=== PATIENT | female | born 1975 | race Caucasian/White ===

== ENCOUNTER 2017-08-05 12:33 | Observation (INO) | payer BC ==
[~2017-08-05] VITALS: Ht 165.1 cm; Wt 112.8 kg
[~2017-08-05 12:33] MED LIST: ALBU1AER9 INH; ASPI81TA28 PO; EXEN1INJ4 SQ; FLUO40CA8 PO; FRRS300 PO; GLC500 PO; GLIP-199 PO; IBUP-1050 PO; LISI-725 PO; ONDA4TAB65 PO; PANT1TAB48 PO; VALA500T39 PO
[2017-08-05] MEDS ORDERED: MoRPHine SULFATE 4 MG/ML 1 ML CARP\\VIAL IV STA (13:06)
[2017-08-05] MEDS ORDERED: ONDANSETRON INJ 2 MG/ML 2 ML VIAL IV STA (13:06)
[2017-08-05] MEDS ORDERED: SODIUM CHLORIDE 0.9% 1000ML 1,000 ML IV STA (13:06)
[2017-08-05] MEDS ORDERED: LIRA18IN SC (13:09)
--- NOTE | 2017-08-05 13:10 | EMERGENCY ROOM VISIT NOTE ---
History First contact with patient: 12:58 Chief Complaint: FLANK PAIN Stated Complaint: LOWER R BELLY PAIN, VOMITING, CHILLS, DIZZY History of Present Illness The patient is a 41 year old female who presents to the Emergency Room with complaints of right flank and abdominal pain. The patient states the pain started suddenly about 2 hours ago. The pain is in the right flank and radiates into the right lower abdomen. She reports associated nausea and vomiting. She denies any fevers. She rates her discomfort a 7/10. She denies any pain in her chest or trouble breathing. She denies any diarrhea. She denies any urinary symptoms. The patient has a history of hernia repair, cholecystectomy and . The patient has also had kidney stones in the past but she states this feels slightly different. Review of Systems A 10 system review of systems was completed with positives and pertinent negatives listed in the HPI. Past Medical/Surgical History Medical Problems: (1) Alcohol abuse, in remission (2) Benign hypertension (3) Brain mass (4) Depression (5) Diabetes mellitus, type II (6) GERD (gastroesophageal reflux disease) (7) Hirsutism (8) History of renal calculi (9) PCOS (polycystic ovarian syndrome) (10) Posttraumatic stress disorder (11) Retinal artery occlusion (12) Sleep apnea (13) Strep pharyngitis (14) Strep tonsillitis Surgical Problems: (1) H/O section (2) H/O tubal ligation (3) History of carpal tunnel surgery of left wrist (4) History of dental surgery (5) S/p EGD with EUS (6) S/P laparoscopy (7) Status post cholecystectomy (8) Status post hernia repair (9) Status post tonsillectomy Family History Hypertension Social History Smoking Status: Never Smoker Alcohol Use: occasionally Drug Use: none Marital Status: Housing Status: lives with significant other Occupation Status: employed Current/Historical Medications Scheduled Aspirin (Aspirin Ec), 81 MG PO QAM Cetirizine (Zyrtec), 10 MG PO HS Ferrous Sulfate (Ferrous Sulfate), 325 MG PO BID Glipizide (Glipizide Er), 10 MG PO BIDM Liraglutide (Victoza), 1.2 MG SC DAILY Lisinopril (Lisinopril), 5 MG PO DAILY Metformin Hcl (Glucophage), 1,000 MG PO BID Montelukast Sodium (Singulair), 10 MG PO HS Pantoprazole (Protonix), 40 MG PO QAM Scheduled PRN Albuterol Sulfate (Proair Respiclick), 2 PUFFS INH Q4H PRN for Wheezing Ibuprofen (Advil), 600 MG PO UD PRN for Pain or Fever Ondansetron Hcl (Zofran), 4 MG PO Q6H PRN for Nausea Valacyclovir Hcl (Valtrex), 500 MG PO TID PRN Physical Exam Vital Signs Date Time Temp Pulse Resp B/P (MAP) Pulse Ox O2 Delivery O2 Flow Rate FiO2 08/05/17 15:33 80 18 116/79 97 08/05/17 12:54 36.6 82 16 112/68 100 Room Air Physical Exam VITALS: Vitals are noted on the nurse's note and reviewed by myself. Vital signs stable. The patient is afebrile. GENERAL: This is a 41-year-old female who appears to be uncomfortable, in no acute distress, nondiaphoretic, well-developed well-nourished. SKIN: The skin was without rashes, erythema, edema, or bruising. There is no tenting of the skin. Capillary reflex less than 2 seconds. HEAD: Normocephalic atraumatic. EARS: The external ears are normal in appearance. EYES: Pupils equal round and reactive to light and accommodation. Conjunctivae without injection, sclerae without icterus. Extraocular movements intact. NOSE: Patent, turbinates without inflammation or discharge. MOUTH: Mucous membranes moist. Tonsils are not enlarged. Pharynx without erythema or exudate. Uvula midline. Airway patent. Tongue does not deviate. NECK: Supple without nuchal rigidity. No lymphadenopathy. No thyromegaly. Cervical spine is nontender. No JVD. HEART: Regular rate and rhythm without murmurs gallops or rubs. LUNGS: Clear to auscultation bilaterally without wheezes, rales or rhonchi. No retractions or accessory muscle use. ABDOMEN: Positive bowel sounds x 4. Moderate right lower quadrant tenderness. Soft, nontender, without masses or organomegaly. Hartman sign negative. Negative rebound. Negative Rosvings. MUSCULOSKELETAL: No muscle atrophy, erythema, or edema noted. Full range of motion without joint tenderness in all extremities. Strength 5/5 throughout. NEURO: Patient was alert and oriented to person place and time. No focal neurological deficits. Medical Decision & Procedures ER Provider Diagnostic Interpretation: ABD/PELVIS WITHOUT FOR STONE HISTORY: 41 years-old Female right flank pain, h/o kidney stone acute right-sided flank pain with vomiting. Initial exam COMPARISON: CT abdomen and pelvis 09/13/2015 TECHNIQUE: Multiple axial CT images of the abdomen and pelvis were obtained without contrast utilizing kidney stone protocol. A dose lowering technique was used consistent with the principals of MALIKA. FINDINGS: Lung bases are generally clear with subsegmental linear pleural-based opacity of the right middle lobe suggesting scarring/atelectasis. No pneumoperitoneum. Imaged inferior cardiac chambers are unremarkable. There is decreased attenuation of the cardiac blood pool suggesting anemia. Hepatomegaly with hepatosteatosis is noted. Prior cholecystectomy. Spleen, pancreas and adrenal glands are within normal limits. 2 mm nonobstructing calculus of the superior pole left kidney is noted. Additionally, there is a 2 mm nonobstructing calculus of the inferior pole right kidney. There is mild right sided obstructive uropathy secondary to a 4 x 3 x 4 mm calculus of the right ureteropelvic junction. Mild associated surrounding inflammatory stranding. Ureters are otherwise unremarkable. Urinary bladder is collapsed. There is asymmetric prominence of the right uterine body, 3.1 x 2.4 cm which is suspicious for underlying uterine fibroid. There is a tubular fluid-filled structure in the region of the left adnexum measuring up to 9 mm transversely on image 390 of series 3 suggesting hydrosalpinx. The abdominal aorta is normal in course and caliber. No bulky retroperitoneal adenopathy. There is no bowel obstruction or focal bowel wall thickening. The appendix is air-filled, noninflamed and nondilated. Postsurgical changes are seen within the right lower quadrant of the abdomen. Previously noted chronic loculated fluid within the right lower quadrant have resolved. Soft tissues are unremarkable. Bones are intact. There is mild convex left curvature of the lumbar spine. Mild endplate changes of the lower thoracic spine. IMPRESSION: 1. Mild right-sided hydroureteronephrosis secondary to a 4 x 3 x 4 mm calculus of the right ureteropelvic junction. Additional nonobstructing renal calculi are present as above. 2. Normal appendix. 3. Postsurgical changes of the right lower quadrant with resolution of the previously described small loculated fluid collection. 4. Suspected mild left hydrosalpinx. Asymmetry of the right uterine body as above suggests uterine fibroid. This could be correlated with pelvic ultrasound if clinically indicated. 5. Hepatomegaly with hepatosteatosis. Prior cholecystectomy. The above report was generated using voice recognition software. It may contain grammatical, syntax or spelling errors. Laboratory Results 08/05/17 13:12 Red Blood Count 4.58, Mean Corpuscular Volume 68.1, Mean Corpuscular Hemoglobin 21.2, Mean Corpuscular Hemoglobin Concent 31.1, Mean Platelet Volume 9.6, Neutrophils (%) (Auto) 64.4, Lymphocytes (%) (Auto) 26.8, Monocytes (%) (Auto) 5.8, Eosinophils (%) (Auto) 2.3, Basophils (%) (Auto) 0.3, Neutrophils # (Auto) 8.85, Lymphocytes # (Auto) 3.68, Monocytes # (Auto) 0.80, Eosinophils # (Auto) 0.32, Basophils # (Auto) 0.04 08/05/17 13:12 Test 08/05/17 13:12 White Blood Count 13.74 K/uL (4.8-10.8) Red Blood Count 4.58 M/uL (4.2-5.4) Hemoglobin 9.7 g/dL (12.0-16.0) Hematocrit 31.2 % (37-47) Mean Corpuscular Volume 68.1 fL (80-100) Mean Corpuscular Hemoglobin 21.2 pg (25-34) Mean Corpuscular Hemoglobin Concent 31.1 g/dl (32-36) Platelet Count 403 K/uL (130-400) Mean Platelet Volume 9.6 fL (7.4-10.4) Neutrophils (%) (Auto) 64.4 % Lymphocytes (%) (Auto) 26.8 % Monocytes (%) (Auto) 5.8 % Eosinophils (%) (Auto) 2.3 % Basophils (%) (Auto) 0.3 % Neutrophils # (Auto) 8.85 K/uL (1.4-6.5) Lymphocytes # (Auto) 3.68 K/uL (1.2-3.4) Monocytes # (Auto) 0.80 K/uL (0.11-0.59) Eosinophils # (Auto) 0.32 K/uL (0-0.5) Basophils # (Auto) 0.04 K/uL (0-0.2) RDW Standard Deviation 42.1 fL (36.4-46.3) RDW Coefficient of Variation 16.9 % (11.5-14.5) Immature Granulocyte % (Auto) 0.4 % Immature Granulocyte # (Auto) 0.05 K/uL (0.00-0.02) Microcytosis PRESENT Tear Drop Cells 1+ Ovalocytes 1+ Urine Color DK YELLOW Urine Appearance CLOUDY (CLEAR) Urine pH 5.0 (4.5-7.5) Urine Specific [place] 1.022 (1.000-1.030) Urine Protein TRACE (NEG) Urine Glucose (UA) NEG (NEG) Urine Ketones TRACE (NEG) Urine Occult Blood 3+ (NEG) Urine Nitrite NEG (NEG) Urine Bilirubin NEG (NEG) Urine Urobilinogen NEG (NEG) Urine Leukocyte Esterase TRACE (NEG) Urine WBC (Auto) 1-5 /hpf (0-5) Urine RBC (Auto) >30 /hpf (0-4) Urine Hyaline Casts (Auto) 1-5 /lpf (0-5) Urine Epithelial Cells (Auto) >30 /lpf (0-5) Urine Bacteria (Auto) NEG (NEG) Urine Test NEG (NEG) Anion Gap 13.0 mmol/L (3-11) Est Creatinine Clear Calc Drug Dose 147.8 ml/min Estimated GFR () 130.3 Estimated GFR (Non- 112.4 BUN/Creatinine Ratio 9.2 (10-20) Calcium Level 9.5 mg/dl (8.5-10.1) Total Bilirubin 0.4 mg/dl (0.2-1) Aspartate Amino Transf (AST/SGOT) 29 U/L (15-37) Alanine Aminotransferase (ALT/SGPT) 27 U/L (12-78) Alkaline Phosphatase 52 U/L (45-117) Total Protein 7.7 gm/dl (6.4-8.2) Albumin 3.9 gm/dl (3.4-5.0) Globulin 3.8 gm/dl (2.5-4.0) Albumin/Globulin Ratio 1.0 (0.9-2) Lipase 138 U/L (73-393) Medications Administered Medications (Trade) Dose Ordered Sig/Kim Route Start Time Stop Time Status Last Admin Dose Admin Sodium Chloride 1,000 ml @ 999 mls/hr Q1H1M STAT IV 08/05/17 13:06 08/05/17 14:06 DC 08/05/17 13:17 999 MLS/HR Ondansetron HCl (Zofran Inj) 4 mg NOW STAT IV 08/05/17 13:06 08/05/17 13:08 DC 08/05/17 13:17 4 MG Morphine Sulfate (MoRPHine SULFATE INJ) 4 mg NOW STAT IV 08/05/17 13:06 08/05/17 13:08 DC 08/05/17 13:19 4 MG Ketorolac Tromethamine (Toradol Inj) 30 mg NOW STAT IV 08/05/17 14:10 08/05/17 14:11 DC 08/05/17 14:21 30 MG Tamsulosin HCl (Flomax Cap) 0.4 mg NOW ONCE PO 08/05/17 15:15 08/05/17 15:16 DC 08/05/17 15:32 0.4 MG ED Course The patient was seen and examined. Previous visits were reviewed. The patient does not have a fever. She does have a leukocytosis of 13.74. This may be stress related. She has a mild anemia which she states is normal for her. There is no evidence for significant electrolyte abnormality. Lipase is not elevated. Urinalysis reveals hematuria and contamination but no obvious urinary tract infection. Urine test was negative. CT scan of the abdomen and pelvis was obtained as above. The patient has a 4 x 3 x 4 mm stone at the right UPJ. There is also suggestion of uterine fibroids of which the patient is aware. There is suggestion of hydrosalpinx. There is also hepatic steatosis. The patient was hydrated with normal saline solution She was given 4 mg IV morphine and 4 mg IV Zofran with no significant improvement in her pain The patient was given 30 mg IV Toradol with moderate improvement in her pain She was given Flomax The patient has a kidney stone at the right UPJ. She has had severe and persistent pain. She would benefit from further evaluation and management in the hospital. [facility] and will [facility] the patient. The case was discussed with Dr. Cano who agrees with the assessment and treatment plan. Medical Decision DIFFERENTIAL DIAGNOSIS: Hepatitis, cholecystitis, cholangitis, biliary colic, pancreatitis, pneumonia, subdiaphragmatic abscess, appendicitis, inguinal hernia , nephrolithiasis, inflammatory bowel disease, mesenteric adenitis, peptic ulcer disease, GERD, gastritis, pancreatitis, myocardial infarction, pericarditis, ruptured aortic aneurysm, appendicitis, gastroenteritis, bowel obstruction, splenic infarct, diverticulitis, mesenteric ischemia, metabolic, peritonitis, among others. Medication Reconcilliation Current Medication List: was personally reviewed by ms Blood Pressure Screening Patient's blood pressure: Normal blood pressure Blood pressure disposition: Did not require urgent referral Impression Primary Impression: Kidney stone Departure Information Dispostion Admitted as an inpatient Referrals Hamzah Fontenot M.D. (PCP) Patient Instructions [facility]
[2017-08-05] MEDS ORDERED: ALBU18002 INH (13:12)
[2017-08-05] MEDS ORDERED: GLC/500 PO (13:12)
[2017-08-05 13:49] LABS: URINE APPEARANCE CLOUDY (CLEAR); URINE BILIRUBIN NEG (NEG); URINE COLOR DK YELLOW; URINE EPITHELIAL CELL AUTO >30 /lpf (0-5); URINE NITRITE NEG (NEG); URINE SPECIFIC GRAVITY 1.022 (1.000-1.030); UROBILINOGEN NEG (NEG); ZZUR CULT IF INDIC CLEAN CATCH NO
[2017-08-05 13:50] LABS: MANUAL MICROSCOPIC REQUIRED? NO; REVIEW REQ? NO
[2017-08-05 13:54] LABS: HEMATOCRIT 31.2 % (37-47); MEAN CELL VOLUME 68.1 fL (80-100); MEAN CORPUSCULAR HEMOGLOBIN 21.2 pg (25-34); MEAN CORPUSCULAR HGB CONC 31.1 g/dl (32-36); MEAN PLATELET VOLUME 9.6 fL (7.4-10.4); PLATELET COUNT 403 K/uL (130-400); RED BLOOD COUNT 4.58 M/uL (4.2-5.4); WHITE BLOOD COUNT 13.74 K/uL (4.8-10.8)
[2017-08-05 13:58] LABS: BUN/CREATININE RATIO 9.2 (10-20); CALCIUM 9.5 mg/dl (8.5-10.1); CREATININE 0.64 mg/dl (0.60-1.20); POTASSIUM 3.4 mmol/L (3.5-5.1)
--- NOTE | 2017-08-05 13:59 | DIAGNOSTIC IMAGING REPORT ---
ABD/PELVIS WITHOUT FOR STONE HISTORY: 41 years-old Female right flank pain, h/o kidney stone acute right-sided flank pain with vomiting. Initial exam COMPARISON: CT abdomen and pelvis 09/13/2015 TECHNIQUE: Multiple axial CT images of the abdomen and pelvis were obtained without contrast utilizing kidney stone protocol. A dose lowering technique was used consistent with the principals of MALIKA. FINDINGS: Lung bases are generally clear with subsegmental linear pleural-based opacity of the right middle lobe suggesting scarring/atelectasis. No pneumoperitoneum. Imaged inferior cardiac chambers are unremarkable. There is decreased attenuation of the cardiac blood pool suggesting anemia. Hepatomegaly with hepatosteatosis is noted. Prior cholecystectomy. Spleen, pancreas and adrenal glands are within normal limits. 2 mm nonobstructing calculus of the superior pole left kidney is noted. Additionally, there is a 2 mm nonobstructing calculus of the inferior pole right kidney. There is mild right sided obstructive uropathy secondary to a 4 x 3 x 4 mm calculus of the right ureteropelvic junction. Mild associated surrounding inflammatory stranding. Ureters are otherwise unremarkable. Urinary bladder is collapsed. There is asymmetric prominence of the right uterine body, 3.1 x 2.4 cm which is suspicious for underlying uterine fibroid. There is a tubular fluid-filled structure in the region of the left adnexum measuring up to 9 mm transversely on image 390 of series 3 suggesting hydrosalpinx. The abdominal aorta is normal in course and caliber. No bulky retroperitoneal adenopathy. There is no bowel obstruction or focal bowel wall thickening. The appendix is air-filled, noninflamed and nondilated. Postsurgical changes are seen within the right lower quadrant of the abdomen. Previously noted chronic loculated fluid within the right lower quadrant have resolved. Soft tissues are unremarkable. Bones are intact. There is mild convex left curvature of the lumbar spine. Mild endplate changes of the lower thoracic spine. IMPRESSION: 1. Mild right-sided hydroureteronephrosis secondary to a 4 x 3 x 4 mm calculus of the right ureteropelvic junction. Additional nonobstructing renal calculi are present as above. 2. Normal appendix. 3. Postsurgical changes of the right lower quadrant with resolution of the previously described small loculated fluid collection. 4. Suspected mild left hydrosalpinx. Asymmetry of the right uterine body as above suggests uterine fibroid. This could be correlated with pelvic ultrasound if clinically indicated. 5. Hepatomegaly with hepatosteatosis. Prior cholecystectomy. The above report was generated using voice recognition software. It may contain grammatical, syntax or spelling errors. Electronically signed by: Jasbir Lucero M.D. 08/05/2017 1:57 PM Dictated Date/Time: 08/05/2017 1:49 PM
[2017-08-05 14:03] LABS: BASO % 0.3 %; BASO ABS # 0.04 K/uL (0-0.2); COMPLETE YES; EOS % 2.3 %; IG% 0.4 %; LYMPH % 26.8 %; LYMPH ABS # 3.68 K/uL (1.2-3.4); MICROCYTOSIS PRESENT; MONO % 5.8 %; NEUT % 64.4 %; OVALOCYTES 1+; TEAR DROP CELLS 1+
[2017-08-05] MEDS ORDERED: KETOROLAC TROMETHAMINE 30 MG/ML VIAL IV STA (14:10)
[2017-08-05] MEDS ORDERED: TAMSULOSIN HCL 0.4 MG CAP PO ONE (15:15)
[2017-08-05] MEDS ORDERED: ACETAMINOPHEN 325 MG TAB PO PRN (16:45)
[2017-08-05 17:29] VITALS: O2SAT 98
--- NOTE | 2017-08-05 17:37 | History and Physical ---
History & Physical Date & Time of Service: Aug 05, 2017 at 17:37 . Chief Complaint: abdominal pain . Primary Care Physician: Hamzah Fontenot M.D. . History of Present Illness Source: patient, clinic records, hospital records 41 YO female followed by Dr. Fontenot for Family Medicine. History of hypertension, DM type 2, and other problems noted below. History of renal calculi, but never requiring hospitalization or surgical intervention. Developed abdominal / right flank pain around 11:00 this morning. Pain constant, severe (8/10), located in RLQ, and radiates to right flank. Associated with chills, nausea, vomiting. No fever. No diarrhea, melena, hematochezia. No dysuria or hematuria. Did not take any medications for relief prior to ED arrival. Received morphine, ondansetron, ketorolac in ED with improvement of pain and nausea. . Past Medical/Surgical History Chronic and Resolved Medical Problems: (1) Alcohol abuse, in remission Status: Chronic (2) Benign hypertension Status: Chronic (3) Brain mass Permanent Comment: Dx 10, MRI- cyst dorsal right thalamus 04/15 MRI- stable mass 04/16 [id number] slight increase 05/05/2014- stable cyst 06/08/2015- unchanged cyst right thalamus Status: Chronic (4) Depression Status: Chronic (5) Diabetes mellitus, type II Status: Chronic (6) GERD (gastroesophageal reflux disease) Status: Chronic (7) Hirsutism Status: Chronic (8) History of renal calculi Status: Chronic (9) PCOS (polycystic ovarian syndrome) Status: Chronic (10) Posttraumatic stress disorder Status: Chronic (11) Retinal artery occlusion Status: Resolved (12) Sleep apnea Permanent Comment: on CPAP Status: Chronic (13) Strep pharyngitis Status: Resolved (14) Strep tonsillitis Status: Resolved Surgical Problems: (1) H/O section Status: Chronic (2) H/O tubal ligation Status: Chronic (3) History of carpal tunnel surgery of left wrist Status: Chronic (4) History of dental surgery Status: Chronic (5) S/p EGD with EUS Permanent Comment: 11/25/2014- CBD dilation, fatty liver Status: Chronic (6) S/P laparoscopy Permanent Comment: 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 Family History FATHER Throat cancer Hypertension MOTHER Diabetes mellitus Heart disease BROTHER Pancreatic cancer GRANDMOTHER Diabetes mellitus Social History Smoking Status: Never Smoker Alcohol Use: heavy use years ago, now rare Drug Use: none Marital Status: Housing status: lives with family Occupational Status: employed Immunizations History of Influenza Vaccine: Unknown History of Tetanus Vaccine?: Yes History of Pneumococcal: No History of Hepatitis B Vaccine: Unknown Multi-Drug Resistant Organisms History of MDRO: No Allergies Coded Allergies: No Known Allergies (Verified , 08/05/17) Home Medications Scheduled Aspirin (Aspirin Ec), 81 MG PO QAM Cetirizine (Zyrtec), 10 MG PO HS Ferrous Sulfate (Ferrous Sulfate), 325 MG PO BID Glipizide (Glipizide Er), 10 MG PO BIDM Liraglutide (Victoza), 1.2 MG SC DAILY Lisinopril (Lisinopril), 5 MG PO DAILY Metformin Hcl (Glucophage), 1,000 MG PO BID Montelukast Sodium (Singulair), 10 MG PO HS Pantoprazole (Protonix), 40 MG PO QAM Scheduled PRN Albuterol Sulfate (Proair Respiclick), 2 PUFFS INH Q4H PRN for Wheezing Ibuprofen (Advil), 600 MG PO UD PRN for Pain or Fever Ondansetron Hcl (Zofran), 4 MG PO Q6H PRN for Nausea Valacyclovir Hcl (Valtrex), 500 MG PO TID PRN Review of Systems Constitutional: + chills, No fever Eyes: No worsening of vision ENT: No nasal symptoms, No sore throat Respiratory: No cough, No shortness of breath Cardiovascular: No chest pain, No edema Abdomen: + problem reported (as noted in HPI) Musculoskeletal: + joint pain Genitourinary - Female: + problem reported (as noted in HPI) Neurologic: + problem reported (no headaches, mild diabetic neuropathy) Endocrine: + problem reported (blood sugars well-controlled at home), No excessive thirst, No excessive urination Hematologic / Lymphatic: No abnormal bleeding/bruising, No swollen lymph nodes Integumentary: + problem reported (psoriasis), No new/changing skin lesions Allergic / Immunologic: + environmental allergies Physical Exam Vital Signs Date Time Temp Pulse Resp B/P (MAP) Pulse Ox O2 Delivery O2 Flow Rate FiO2 08/05/17 17:29 87 18 122/85 98 Room Air 08/05/17 15:33 80 18 116/79 97 08/05/17 12:54 36.6 82 16 112/68 100 Room Air General Appearance: WD/WN, no apparent distress Head: normocephalic, atraumatic Eyes: normal inspection, PERRL, EOMI, sclerae normal (conjunctivae pink) ENT: hearing grossly normal, pharynx normal Neck: supple, no adenopathy, thyroid normal, no JVD, trachea midline Respiratory/Chest: lungs clear, no respiratory distress, no accessory muscle use Cardiovascular: regular rate, rhythm, no edema, no gallop, no JVD, no murmur Abdomen/GI: normal bowel sounds, non tender (after receiving analgesics in ED) , soft, no organomegaly, no pulsatile mass Back: no CVA tenderness (after receiving analgesics in ED) Extremities/Musculoskelatal: normal inspection, no calf tenderness, normal capillary refill, no pedal edema 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 (PERRL, EOMI, no facial palsy, no dysathria), no motor/sensory deficits (grossly intact), alert, normal mood/ affect, oriented x 3 Skin: normal color, warm/dry, + pertinent finding (psoriatic plaques on extensor surface of elbows, back, legs) Lymphatic: no adenopathy (cervical) Diagnostics Laboratory Results Results Past 24 Hours Test 08/05/17 13:12 Range/Units White Blood Count 13.74 4.8-10.8 K/uL Red Blood Count 4.58 4.2-5.4 M/uL Hemoglobin 9.7 12.0-16.0 g/dL Hematocrit 31.2 37-47 % Mean Corpuscular Volume 68.1 80-100 fL Mean Corpuscular Hemoglobin 21.2 25-34 pg Mean Corpuscular Hemoglobin Concent 31.1 32-36 g/dl Platelet Count 403 130-400 K/uL Mean Platelet Volume 9.6 7.4-10.4 fL Neutrophils (%) (Auto) 64.4 % Lymphocytes (%) (Auto) 26.8 % Monocytes (%) (Auto) 5.8 % Eosinophils (%) (Auto) 2.3 % Basophils (%) (Auto) 0.3 % Neutrophils # (Auto) 8.85 1.4-6.5 K/uL Lymphocytes # (Auto) 3.68 1.2-3.4 K/uL Monocytes # (Auto) 0.80 0.11-0.59 K/uL Eosinophils # (Auto) 0.32 0-0.5 K/uL Basophils # (Auto) 0.04 0-0.2 K/uL RDW Standard Deviation 42.1 36.4-46.3 fL RDW Coefficient of Variation 16.9 11.5-14.5 % Immature Granulocyte % (Auto) 0.4 % Immature Granulocyte # (Auto) 0.05 0.00-0.02 K/uL Microcytosis PRESENT Tear Drop Cells 1+ Ovalocytes 1+ Urine Color DK YELLOW Urine Appearance CLOUDY CLEAR Urine pH 5.0 4.5-7.5 Urine Specific [place] 1.022 1.000-1.030 Urine Protein TRACE NEG Urine Glucose (UA) NEG NEG Urine Ketones TRACE NEG Urine Occult Blood 3+ NEG Urine Nitrite NEG NEG Urine Bilirubin NEG NEG Urine Urobilinogen NEG NEG Urine Leukocyte Esterase TRACE NEG Urine WBC (Auto) 1-5 0-5 /hpf Urine RBC (Auto) >30 0-4 /hpf Urine Hyaline Casts (Auto) 1-5 0-5 /lpf Urine Epithelial Cells (Auto) >30 0-5 /lpf Urine Bacteria (Auto) NEG NEG Urine Test NEG NEG Sodium Level 137 136-145 mmol/L Potassium Level 3.4 3.5-5.1 mmol/L Chloride Level 101 98-107 mmol/L Carbon Dioxide Level 23 21-32 mmol/L Anion Gap 13.0 3-11 mmol/L Blood Urea Nitrogen 6 7-18 mg/dl Creatinine 0.64 0.60-1.20 mg/dl Est Creatinine Clear Calc Drug Dose 147.8 ml/min Estimated GFR () 130.3 Estimated GFR (Non- 112.4 BUN/Creatinine Ratio 9.2 10-20 Random Glucose 124 70-99 mg/dl Calcium Level 9.5 8.5-10.1 mg/dl Total Bilirubin 0.4 0.2-1 mg/dl Aspartate Amino Transf (AST/SGOT) 29 15-37 U/L Alanine Aminotransferase (ALT/SGPT) 27 12-78 U/L Alkaline Phosphatase 52 45-117 U/L Total Protein 7.7 6.4-8.2 gm/dl Albumin 3.9 3.4-5.0 gm/dl Globulin 3.8 2.5-4.0 gm/dl Albumin/Globulin Ratio 1.0 0.9-2 Lipase 138 73-393 U/L Diagnostic Radiology ABD/PELVIS WITHOUT FOR STONE FINDINGS: Lung bases are generally clear with subsegmental linear pleural-based opacity of the right middle lobe suggesting scarring/atelectasis. No pneumoperitoneum. Imaged inferior cardiac chambers are unremarkable. There is decreased attenuation of the cardiac blood pool suggesting anemia. Hepatomegaly with hepatosteatosis is noted. Prior cholecystectomy. Spleen, pancreas and adrenal glands are within normal limits. 2 mm nonobstructing calculus of the superior pole left kidney is noted. Additionally, there is a 2 mm nonobstructing calculus of the inferior pole right kidney. There is mild right sided obstructive uropathy secondary to a 4 x 3 x 4 mm calculus of the right ureteropelvic junction. Mild associated surrounding inflammatory stranding. Ureters are otherwise unremarkable. Urinary bladder is collapsed. There is asymmetric prominence of the right uterine body, 3.1 x 2.4 cm which is suspicious for underlying uterine fibroid. There is a tubular fluid-filled structure in the region of the left adnexum measuring up to 9 mm transversely on image 390 of series 3 suggesting hydrosalpinx. The abdominal aorta is normal in course and caliber. No bulky retroperitoneal adenopathy. There is no bowel obstruction or focal bowel wall thickening. The appendix is air-filled, noninflamed and nondilated. Postsurgical changes are seen within the right lower quadrant of the abdomen. Previously noted chronic loculated fluid within the right lower quadrant have resolved. Soft tissues are unremarkable. Bones are intact. There is mild convex left curvature of the lumbar spine. Mild endplate changes of the lower thoracic spine. IMPRESSION: 1. Mild right-sided hydroureteronephrosis secondary to a 4 x 3 x 4 mm calculus of the right ureteropelvic junction. Additional nonobstructing renal calculi are present as above. 2. Normal appendix. 3. Postsurgical changes of the right lower quadrant with resolution of the previously described small loculated fluid collection. 4. Suspected mild left hydrosalpinx. Asymmetry of the right uterine body as above suggests uterine fibroid. This could be correlated with pelvic ultrasound if clinically indicated. 5. Hepatomegaly with hepatosteatosis. Prior cholecystectomy. The above report was generated using voice recognition software. It may contain grammatical, syntax or spelling errors. Electronically signed by: Jasbir Lucero M.D. 08/05/2017 1:57 PM Dictated Date/Time: 08/05/2017 1:49 PM Impression Assessment and Plan URETERAL CALCULUS CT demonstrated 4 mm right ureteral calculus at UP junction. No hydronephrosis. Does not appear to be infected. Initial management will consist of IV fluids, analgesics, anti-emetics, tamsulosin. Strain urine. Consult Urology. HYPERTENSION Continue lisinopril. Follow and titrate Rx. SLEEP APNEA Continue CPAP. HYPOKALEMIA Serum K = 3.4. IV repletion with lactated Ringer's. Follow. DM TYPE 2 Well-controlled at home. Random blood sugar in ED 124. Hold liraglutide and oral agents while acutely ill. Check Hgb A1C. Lantus / NovoLog per protocol during hospital stay. ABNORMAL CT PELVIS Asymmetry of right uterine body noted on CT, suspected fibroid. Check nonemergent outpatient pelvic ultrasound. VTE PROPHYLAXIS Low - moderate risk for VTE. No anticoagulants due to ureteral calculus and possible need for surgical intervention. SCD's. Ambulate. RESUSCITATION STATUS Full code. DISPOSITION Observation status on Med-Surg unit. Expected discharge to home. Family Medicine follow-up with Dr. Fontenot. . VTE Prophylaxis VTE Risk Assessment Done? Y/N: Yes Risk Level: Moderate Given or contraindicated: SCD's
[2017-08-05] MEDS ORDERED: HYDROmorphone INJ 1 MG/ML SYR IV PRN (17:45)
[2017-08-05] MEDS ORDERED: ONDANSETRON INJ 2 MG/ML 2 ML VIAL IV PRN (17:45)
[2017-08-05] MEDS ORDERED: LORAZEPAM INJ 1 MG in SYRINGE 0.5 ML IV PRN (17:45)
[2017-08-05 18:00] VITALS: BP 119/75; PULSE 82; TEMP 36.6; O2SAT 98; BMI 41.4
[2017-08-05] MEDS ORDERED: IV FLUIDS COMPLETED PRN (18:15)
[2017-08-05] MEDS: LACTATED RINGER'S 1000ML 1,000 ML IV SCH ×2 (18:42→21:34)
[2017-08-05] MEDS ORDERED: GLUCAGON FOR INJ 1 MG VIAL SQ PRN (19:00)
[2017-08-05] MEDS ORDERED: GLUCOSE 10 TABS/TUBE PO PRN (19:00)
[2017-08-05] MEDS ORDERED: DEXTROSE 50% 50 ML SYR IV PRN (19:00)
[2017-08-05] MEDS ORDERED: GLUCOSE 40% GEL 15 GM TUBE PO PRN (19:00)
[2017-08-05] MEDS ORDERED: INFLUENZA VIRUS QUAD VACCINE 0.5 ML SYR IM. ONE (20:15)
[2017-08-05] MEDS ORDERED: INFLUENZA ADMINISTRATION CHARGE ONE (20:15)
[2017-08-05] MEDS ORDERED: LSN5 PO (20:18)
[2017-08-05] MEDS ORDERED: CETI10TA84 PO (20:18)
[2017-08-05] MEDS ORDERED: MONT1TAB3 PO (20:18)
[2017-08-05] MEDS ORDERED: ALBUTEROL HFA 8 GM INHALER INH PRN (20:30)
[2017-08-05] MEDS ORDERED: MONTELUKAST SOD 10 MG TAB PO SCH (21:00)
[2017-08-05] MEDS ORDERED: CETIRIZINE HCL 10 MG TAB PO SCH (21:00)
[2017-08-05] MEDS: TAMSULOSIN HCL 0.4 MG CAP PO SCH (21:34)
[2017-08-05] MEDS: INSULIN GLARGINE SOLOSTAR 100 UNITS/ML 3 ML PEN SC SCH (21:35)
[2017-08-05] MEDS: INSULIN ASPART 100 UNITS/ML 3 ML PEN SC SCH (21:38)
[2017-08-05 23:10] VITALS: BP 120/80; PULSE 82; TEMP 36.7; O2SAT 94
[2017-08-06] MEDS: LACTATED RINGER'S 1000ML 1,000 ML IV SCH ×4 (01:39→13:22)
[2017-08-06 07:12] VITALS: BP 99/66; PULSE 70; TEMP 36.8; O2SAT 98
[2017-08-06 07:14] LABS: HEMATOCRIT 27.5 % (37-47); MEAN CELL VOLUME 69.1 fL (80-100); MEAN CORPUSCULAR HEMOGLOBIN 20.1 pg (25-34); MEAN CORPUSCULAR HGB CONC 29.1 g/dl (32-36); MEAN PLATELET VOLUME 9.6 fL (7.4-10.4); PLATELET COUNT 313 K/uL (130-400); RED BLOOD COUNT 3.98 M/uL (4.2-5.4); WHITE BLOOD COUNT 8.81 K/uL (4.8-10.8)
[2017-08-06 07:48] LABS: BUN/CREATININE RATIO 5.8 (10-20); CALCIUM 8.5 mg/dl (8.5-10.1); CREATININE 0.57 mg/dl (0.60-1.20); POTASSIUM 3.4 mmol/L (3.5-5.1)
[2017-08-06] MEDS: TAMSULOSIN HCL 0.4 MG CAP PO SCH (08:43)
[2017-08-06 08:45] VITALS: BP 120/67; PULSE 80
[2017-08-06] MEDS: INSULIN GLARGINE SOLOSTAR 100 UNITS/ML 3 ML PEN SC SCH (09:00)
[2017-08-06] MEDS ORDERED: LISINOPRIL 5 MG TAB PO SCH (09:00)
[2017-08-06] MEDS: INSULIN ASPART 100 UNITS/ML 3 ML PEN SC SCH ×2 (09:03→12:44)
--- NOTE | 2017-08-06 11:23 | Progress Note ---
Internal Med Progress Note Date of Service: Aug 06, 2017. Provider Documentation: General Appearance: no apparent distress Head: normocephalic, atraumatic Eyes: normal inspection, PERRL, EOMI, sclerae normal ENT: hearing grossly normal, pharynx normal Neck: supple no JVD, trachea midline Respiratory/Chest: lungs clear, no respiratory distress, no accessory muscle use Cardiovascular: regular rate, rhythm, no edema, no gallop, no JVD, no murmur Abdomen/GI: normal bowel sounds, non tender, soft, no organomegaly Back: no CVA tenderness Extremities: normal inspection, no calf tenderness, normal capillary refill, no pedal edema Neurologic/Psych: no motor/sensory deficits (grossly intact), alert, normal mood /affect, oriented x 3 ASSESSMENT & PLAN: 41 year old F with abdominal pain and CT abdomen findings as below. Was evaluated by urology service on emergency presentation on 08/05/2017. CT Abdomen Lung bases are generally clear with subsegmental linear pleural-based opacity of the right middle lobe suggesting scarring/atelectasis. No pneumoperitoneum. Imaged inferior cardiac chambers are unremarkable. There is decreased attenuation of the cardiac blood pool suggesting anemia. Hepatomegaly with hepatosteatosis is noted. Prior cholecystectomy. Spleen, pancreas and adrenal glands are within normal limits. 2 mm nonobstructing calculus of the superior pole left kidney is noted. Additionally, there is a 2 mm nonobstructing calculus of the inferior pole right kidney. There is mild right sided obstructive uropathy secondary to a 4 x 3 x 4 mm calculus of the right ureteropelvic junction. Mild associated surrounding inflammatory stranding. Ureters are otherwise unremarkable. Urinary bladder is collapsed. There is asymmetric prominence of the right uterine body, 3.1 x 2.4 cm which is suspicious for underlying uterine fibroid. There is a tubular fluid- filled structure in the region of the left adnexum measuring up to 9 mm transversely on image 390 of series 3 suggesting hydrosalpinx. The abdominal aorta is normal in course and caliber. No bulky retroperitoneal adenopathy. There is no bowel obstruction or focal bowel wall thickening. The appendix is air-filled, noninflamed and nondilated. Postsurgical changes are seen within the right lower quadrant of the abdomen. Previously noted chronic loculated fluid within the right lower quadrant have resolved. Soft tissues are unremarkable. Bones are intact. There is mild convex left curvature of the lumbar spine. Mild endplate changes of the lower thoracic spine. IMPRESSION: 1. Mild right-sided hydroureteronephrosis secondary to a 4 x 3 x 4 mm calculus of the right ureteropelvic junction. Additional nonobstructing renal calculi are present as above. 2. Normal appendix. 3. Postsurgical changes of the right lower quadrant with resolution of the previously described small loculated fluid collection. 4. Suspected mild left hydrosalpinx. Asymmetry of the right uterine body as above suggests uterine fibroid. This could be correlated with pelvic ultrasound if clinically indicated. 5. Hepatomegaly with hepatosteatosis. Prior cholecystectomy. DISPOSITION: When patient reassessed in the AM of 08/06/2017, patient reports abdominal pain has improved significantly with minimal need for pain medication. Is awaiting urology consult to follow up for hydronephrosis For now is under observation. continue IV fluids, tamsulosin, pain medications prn, sliding scale insulin If patient stable and does not require further urology intervention for hydronephrosis, patient likely can follow up with her primary care doctor: Hamzah Fontenot MD Family Practice [facility] Vital Signs: Date Time Temp Pulse Resp B/P (MAP) Pulse Ox O2 Delivery O2 Flow Rate FiO2 08/06/17 08:45 80 120/67 (84) 08/06/17 07:30 Room Air 08/06/17 07:12 36.8 70 16 99/66 (77) 98 Room Air 08/06/17 00:00 Room Air 08/05/17 23:10 36.7 82 18 120/80 (93) 94 Room Air 08/05/17 21:04 Room Air 08/05/17 18:00 36.6 82 18 119/75 (90) 98 Room Air 08/05/17 18:00 Room Air 08/05/17 17:29 87 18 122/85 98 Room Air 08/05/17 15:33 80 18 116/79 97 08/05/17 12:54 36.6 82 16 112/68 100 Room Air Lab Results: Results Past 24 Hours Test 08/05/17 13:12 08/05/17 18:55 08/05/17 20:31 08/06/17 06:23 Range/Units White Blood Count 13.74 8.81 4.8-10.8 K/uL Red Blood Count 4.58 3.98 4.2-5.4 M/uL Hemoglobin 9.7 8.0 12.0-16.0 g/dL Hematocrit 31.2 27.5 37-47 % Mean Corpuscular Volume 68.1 69.1 80-100 fL Mean Corpuscular Hemoglobin 21.2 20.1 25-34 pg Mean Corpuscular Hemoglobin Concent 31.1 29.1 32-36 g/dl Platelet Count 403 313 130-400 K/uL Mean Platelet Volume 9.6 9.6 7.4-10.4 fL Neutrophils (%) (Auto) 64.4 % Lymphocytes (%) (Auto) 26.8 % Monocytes (%) (Auto) 5.8 % Eosinophils (%) (Auto) 2.3 % Basophils (%) (Auto) 0.3 % Neutrophils # (Auto) 8.85 1.4-6.5 K/uL Lymphocytes # (Auto) 3.68 1.2-3.4 K/uL Monocytes # (Auto) 0.80 0.11-0.59 K/uL Eosinophils # (Auto) 0.32 0-0.5 K/uL Basophils # (Auto) 0.04 0-0.2 K/uL RDW Standard Deviation 42.1 43.2 36.4-46.3 fL RDW Coefficient of Variation 16.9 17.0 11.5-14.5 % Immature Granulocyte % (Auto) 0.4 % Immature Granulocyte # (Auto) 0.05 0.00-0.02 K/uL Microcytosis PRESENT Tear Drop Cells 1+ Ovalocytes 1+ Urine Color DK YELLOW Urine Appearance CLOUDY CLEAR Urine pH 5.0 4.5-7.5 Urine Specific [place] 1.022 1.000-1.030 Urine Protein TRACE NEG Urine Glucose (UA) NEG NEG Urine Ketones TRACE NEG Urine Occult Blood 3+ NEG Urine Nitrite NEG NEG Urine Bilirubin NEG NEG Urine Urobilinogen NEG NEG Urine Leukocyte Esterase TRACE NEG Urine WBC (Auto) 1-5 0-5 /hpf Urine RBC (Auto) >30 0-4 /hpf Urine Hyaline Casts (Auto) 1-5 0-5 /lpf Urine Epithelial Cells (Auto) >30 0-5 /lpf Urine Bacteria (Auto) NEG NEG Urine Test NEG NEG Sodium Level 137 141 136-145 mmol/L Potassium Level 3.4 3.4 3.5-5.1 mmol/L Chloride Level 101 106 98-107 mmol/L Carbon Dioxide Level 23 26 21-32 mmol/L Anion Gap 13.0 9.0 3-11 mmol/L Blood Urea Nitrogen 6 3 7-18 mg/dl Creatinine 0.64 0.57 0.60-1.20 mg/dl Est Creatinine Clear Calc Drug Dose 147.8 165.9 ml/min Estimated GFR () 130.3 135.3 Estimated GFR (Non- 112.4 116.8 BUN/Creatinine Ratio 9.2 5.8 10-20 Random Glucose 124 121 70-99 mg/dl Calcium Level 9.5 8.5 8.5-10.1 mg/dl Total Bilirubin 0.4 0.2-1 mg/dl Aspartate Amino Transf (AST/SGOT) 29 15-37 U/L Alanine Aminotransferase (ALT/SGPT) 27 12-78 U/L Alkaline Phosphatase 52 45-117 U/L Total Protein 7.7 6.4-8.2 gm/dl Albumin 3.9 3.4-5.0 gm/dl Globulin 3.8 2.5-4.0 gm/dl Albumin/Globulin Ratio 1.0 0.9-2 Lipase 138 73-393 U/L Bedside Glucose 120 171 70-90 mg/dl Estimated Average Glucose 174 mg/dl Hemoglobin A1c 7.7 4.5-5.6 % Test 08/06/17 08:06 Range/Units Bedside Glucose 112 70-90 mg/dl
[2017-08-06 11:29] VITALS: Ht 165.1 cm; Wt 112.8 kg
[2017-08-06 15:16] VITALS: BP 121/76; PULSE 87; TEMP 36.5; O2SAT 97
[2017-08-06] MEDS ORDERED: FLM4 PO (15:31)
[2017-08-06] MEDS ORDERED: OXYC-57 PO (15:34)
--- NOTE | 2017-08-06 15:37 | Urology Consultation ---
History General Date of Service: Aug 06, 2017. Chief Complaint: right ureteral stone Primary Care Physician: Hamzah Fontenot M.D. Pt seen a urologist before?: No History of Present Illness I am asked by Dr Siegel to evaluate and treat patient for stone. She is admitted via ER for right renal colic. CT shows mildly obstructing right upper ureteral stone. She has passed other stones fairly easily. She has severe pain nausea and emesis. No fever but + chills. Imaging Imaging: CT Laboratory Results Past 24 Hours Test 08/05/17 18:55 08/05/17 20:31 08/06/17 06:23 08/06/17 08:06 Range/Units Bedside Glucose 120 171 112 70-90 mg/dl White Blood Count 8.81 4.8-10.8 K/uL Red Blood Count 3.98 4.2-5.4 M/uL Hemoglobin 8.0 12.0-16.0 g/dL Hematocrit 27.5 37-47 % Mean Corpuscular Volume 69.1 80-100 fL Mean Corpuscular Hemoglobin 20.1 25-34 pg Mean Corpuscular Hemoglobin Concent 29.1 32-36 g/dl RDW Standard Deviation 43.2 36.4-46.3 fL RDW Coefficient of Variation 17.0 11.5-14.5 % Platelet Count 313 130-400 K/uL Mean Platelet Volume 9.6 7.4-10.4 fL Sodium Level 141 136-145 mmol/L Potassium Level 3.4 3.5-5.1 mmol/L Chloride Level 106 98-107 mmol/L Carbon Dioxide Level 26 21-32 mmol/L Anion Gap 9.0 3-11 mmol/L Blood Urea Nitrogen 3 7-18 mg/dl Creatinine 0.57 0.60-1.20 mg/dl Est Creatinine Clear Calc Drug Dose 165.9 ml/min Estimated GFR () 135.3 Estimated GFR (Non- 116.8 BUN/Creatinine Ratio 5.8 10-20 Random Glucose 121 70-99 mg/dl Estimated Average Glucose 174 mg/dl Hemoglobin A1c 7.7 4.5-5.6 % Calcium Level 8.5 8.5-10.1 mg/dl Test 08/06/17 12:09 Range/Units Bedside Glucose 97 70-90 mg/dl Labs were reviewed and are within normal limits unless listed below. Labs are available in the chart and at [facility] Problem List Medical Problems: (1) Dehydration Status: Acute (2) Kidney stone Status: Acute (3) Orthostatic dizziness Status: Acute (4) Sinusitis Status: Acute Past History depression, diabetes, GERD, high cholesterol, hypertension, kidney stones Past Surgical History: , cholecystectomy, tonsillectomy, tubal ligation Family History Diabetes mellitus MOTHER GRANDMOTHER Heart disease MOTHER Hypertension FATHER Pancreatic cancer BROTHER Throat cancer FATHER Social History Hx Tobacco Use In Past Year?: No Smoking: non-smoker Alcohol: never Marital status: Housing status: lives with family Occupation status: employed Immunizations History of Influenza Vaccine: Unknown History of Tetanus Vaccine?: Yes History of Pneumococcal: No History of Hepatitis B Vaccine: Unknown History of MDRO No Allergies Coded Allergies: No Known Allergies (Verified , 08/05/17) Medications Home Medications: Home Meds and Scripts Medications Dose Route/Sig Max Daily Dose Days Date Category Tamsulosin HCl 0.4 Mg Cap 0.4 Mg PO BID 60 08/06/17 Rx Lisinopril 5 Mg Tab 5 Mg PO DAILY 08/05/17 Reported Zyrtec (Cetirizine HCl) 10 Mg Tab 10 Mg PO HS 08/05/17 Reported Singulair (Montelukast Sodium) 10 Mg Tab 10 Mg PO HS 08/05/17 Reported Glucophage (Metformin Hcl) 500 Mg Tab 1,000 Mg PO BID 08/05/17 Reported Proair Respiclick (Albuterol Sulfate) 108 Mcg/Act Aer 2 Puffs INH Q4H PRN 08/05/17 Reported Victoza (Liraglutide) 18 Mg/3 Ml Inj 1.2 Mg SC DAILY 08/05/17 Reported Advil (Ibuprofen) 200 Mg Tab 600 Mg PO UD PRN 06/12/16 Reported Glipizide Er (Glipizide) 10 Mg Tab 10 Mg PO BIDM 06/12/16 Reported Zofran (Ondansetron Hcl) 4 Mg Tab 4 Mg PO Q6H PRN 09/13/15 Reported Ferrous Sulfate 325 Mg Tab 325 Mg PO BID 01/08/14 Reported Valtrex (Valacyclovir Hcl) 500 Mg Tab 500 Mg PO TID PRN 05/22/13 Reported Protonix (Pantoprazole) 40 Mg Tab 40 Mg PO QAM 05/22/13 Reported Aspirin Ec (Aspirin) 81 Mg Tab 81 Mg PO QAM 05/22/13 Reported Inpatient Medications: Current Inpatient Medications Medications (Trade) Dose Ordered Sig/Kim Route Start Time Stop Time Status Last Admin Dose Admin Acetaminophen (Tylenol Tab) 650 mg Q4H PRN PO 08/05/17 16:45 09/04/17 16:44 Lactated Ringer's 1,000 ml @ 250 mls/hr Q4H IV 08/05/17 17:45 09/04/17 17:44 08/06/17 13:22 250 MLS/HR Tamsulosin HCl (Flomax Cap) 0.4 mg BID PO 08/05/17 21:00 09/04/17 20:59 08/06/17 08:43 0.4 MG Hydromorphone HCl (Dilaudid Inj) 1 mg Q2H PRN IV 08/05/17 17:45 08/19/17 17:44 Ondansetron HCl (Zofran Inj) 4 mg Q6H PRN IV 08/05/17 17:45 09/04/17 17:44 Lorazepam 1 mg/ Syringe 1 ml @ 0.5 mls/min Q6H PRN IV 08/05/17 17:45 09/04/17 17:44 Insulin Glargine (Lantus Solostar Pen) 10 units BID SC 08/05/17 21:00 09/04/17 20:59 08/05/17 21:35 10 UNITS Insulin Aspart (novoLOG ASPART) SLIDING SCALE G... ACHS SC 08/05/17 21:00 09/04/17 20:59 08/06/17 09:03 1 UNITS Miscellaneous (Iv Fluids Completed) 1 ea PRN PRN N/A 08/05/17 18:15 08/05/18 18:14 Glucose (Glucose 40% Gel) 15-30 GRAMS 15 GRAMS... UD PRN PO 08/05/17 19:00 09/04/17 18:59 Glucose (Glucose Chew Tab) 4-8 Tablets 4 Tabl... UD PRN PO 08/05/17 19:00 09/04/17 18:59 Dextrose (Dextrose 50% 50ML Syringe) 25-50ML OF 50% DW IV FOR... UD PRN IV 08/05/17 19:00 09/04/17 18:59 Glucagon (Glucagon Inj) 1 mg UD PRN SQ 08/05/17 19:00 09/04/17 18:59 Cetirizine HCl (zyrTEC TAB) 10 mg HS PO 08/05/17 21:00 09/04/17 20:59 08/05/17 21:42 10 MG Lisinopril (Zestril Tab) 5 mg DAILY PO 08/06/17 09:00 09/05/17 08:59 08/06/17 08:46 5 MG Montelukast Sodium (Singulair Tab) 10 mg HS PO 08/05/17 21:00 09/04/17 20:59 08/05/17 21:41 10 MG Albuterol (Ventolin Hfa Inhaler) 2 puffs Q6H PRN INH 08/05/17 20:30 09/04/17 20:29 Review of Systems Review of Systems Constitutional: + chills, No fever, No weight loss Neurological: No dizzy, No passing out Endocrine: + too cold, No excessive thirst, No too hot, No tired/sluggish Gastrointestinal: + abdominal pain, + nausea, + vomiting, No constipation, No diarrhea Cardiovascular: No chest pain, No palpitations, No swelling ankles/feet Respiratory: No shortness of breath, No chronic cough Female : + kidney stones, No frequent urination, No painful urination, No weak stream Physical Exam Vital Signs: Vital Signs Past 12 Hours Date Time Temp Pulse Resp B/P (MAP) Pulse Ox O2 Delivery O2 Flow Rate FiO2 08/06/17 15:16 36.5 87 18 121/76 (91) 97 Room Air 08/06/17 08:45 80 120/67 (84) 08/06/17 07:30 Room Air 08/06/17 07:12 36.8 70 16 99/66 (77) 98 Room Air Physical Exam: General Appearance: WD/WN, no apparent distress, + obese Eyes: bilateral eyes normal inspection ENT: hearing grossly normal Neck: supple, no adenopathy, no JVD, trachea midline, + pertinent finding ( hirsute) Respiratory/Chest: no respiratory distress, no accessory muscle use Gastrointestinal: Abdomen: normal abdomen Bladder: normal bladder Renal: normal renal Hernia: absent hernia Extremities: non-tender, normal inspection, no pedal edema, no calf tenderness , normal capillary refill Neurologic/Psychiatric: alert, normal mood/affect, oriented x 3 Skin: normal color, warm/dry, no rash Assessment & Plan Assessment & Plan right upper ureteral stone 4mm her pain resolved after ER so she may have moved the stone into the mid ureter she is willing to try to pass stone at home. flomax 0.4mg daily oral narcotics prn severe pain nsaids for mild pain outpatient surgery if colic returns.
--- NOTE | 2017-08-06 15:39 | Discharge Instructions ---
Discharge Instructions Date of Service Aug 06, 2017. Admission Reason for Admission: Ureteral Calculus Discharge Discharge Diagnosis / Problem: right upper uretal stone Discharge Goals Goal(s): Decrease discomfort Activity Recommendations Activity Limitations: per Instructions/Follow-up section Lifting Limitations: gradually increase as tolerated Exercise/Sports Limitations: gradually increase as tolerated Shower/Bathe: no limitations . Instructions / Follow-Up Instructions / Follow-Up follow up with her primary care doctor: Hamzah Fontenot MD [facility] on August 12 2017 at 9:45 AM if you continue to have abdominal pain, urinary symptoms, fevers, please seek immediate medical attention such as emergency room or notify Physician's Name: Rosi Seymour MD Specialty: UROLOGY Answering Service: [phone] Current Hospital Diet Patient's current hospital diet: Diabetes Type 2 Diet Discharge Diet Recommended Diet: Regular Diet Pending Studies Studies pending at discharge: no Laboratory Results 08/06/17 06:23 08/06/17 06:23 Test 08/05/17 13:12 08/06/17 06:23 08/06/17 12:09 Immature Granulocyte % (Auto) 0.4 % White Blood Count 13.74 K/uL (4.8-10.8) Red Blood Count 4.58 M/uL (4.2-5.4) 3.98 M/uL (4.2-5.4) Hemoglobin 9.7 g/dL (12.0-16.0) Hematocrit 31.2 % (37-47) Mean Corpuscular Volume 68.1 fL (80-100) 69.1 fL (80-100) Mean Corpuscular Hemoglobin 21.2 pg (25-34) 20.1 pg (25-34) Mean Corpuscular Hemoglobin Concent 31.1 g/dl (32-36) 29.1 g/dl (32-36) Platelet Count 403 K/uL (130-400) Mean Platelet Volume 9.6 fL (7.4-10.4) 9.6 fL (7.4-10.4) Neutrophils (%) (Auto) 64.4 % Lymphocytes (%) (Auto) 26.8 % Monocytes (%) (Auto) 5.8 % Eosinophils (%) (Auto) 2.3 % Basophils (%) (Auto) 0.3 % Neutrophils # (Auto) 8.85 K/uL (1.4-6.5) Lymphocytes # (Auto) 3.68 K/uL (1.2-3.4) Monocytes # (Auto) 0.80 K/uL (0.11-0.59) Eosinophils # (Auto) 0.32 K/uL (0-0.5) Basophils # (Auto) 0.04 K/uL (0-0.2) Immature Granulocyte # (Auto) 0.05 K/uL (0.00-0.02) Microcytosis PRESENT Tear Drop Cells 1+ Ovalocytes 1+ Urine Color DK YELLOW Urine Appearance CLOUDY (CLEAR) Urine pH 5.0 (4.5-7.5) Urine Specific [place] 1.022 (1.000-1.030) Urine Protein TRACE (NEG) Urine Glucose (UA) NEG (NEG) Urine Ketones TRACE (NEG) Urine Occult Blood 3+ (NEG) Urine Nitrite NEG (NEG) Urine Bilirubin NEG (NEG) Urine Urobilinogen NEG (NEG) Urine Leukocyte Esterase TRACE (NEG) Urine WBC (Auto) 1-5 /hpf (0-5) Urine RBC (Auto) >30 /hpf (0-4) Urine Hyaline Casts (Auto) 1-5 /lpf (0-5) Urine Epithelial Cells (Auto) >30 /lpf (0-5) Urine Bacteria (Auto) NEG (NEG) Urine Test NEG (NEG) Total Bilirubin 0.4 mg/dl (0.2-1) Aspartate Amino Transf (AST/SGOT) 29 U/L (15-37) Alanine Aminotransferase (ALT/SGPT) 27 U/L (12-78) Alkaline Phosphatase 52 U/L (45-117) Total Protein 7.7 gm/dl (6.4-8.2) Albumin 3.9 gm/dl (3.4-5.0) Globulin 3.8 gm/dl (2.5-4.0) Albumin/Globulin Ratio 1.0 (0.9-2) Lipase 138 U/L (73-393) RDW Standard Deviation 43.2 fL (36.4-46.3) RDW Coefficient of Variation 17.0 % (11.5-14.5) Anion Gap 9.0 mmol/L (3-11) Est Creatinine Clear Calc Drug Dose 165.9 ml/min Estimated GFR () 135.3 Estimated GFR (Non- 116.8 BUN/Creatinine Ratio 5.8 (10-20) Estimated Average Glucose 174 mg/dl Hemoglobin A1c 7.7 % (4.5-5.6) Calcium Level 8.5 mg/dl (8.5-10.1) Bedside Glucose 97 mg/dl (70-90) Hemoglobin A1c Test 08/06/17 06:23 Range/Units Estimated Average Glucose 174 mg/dl Hemoglobin A1c 7.7 H 4.5-5.6 % Medical Emergencies . Who to Call and When: Medical Emergencies: If at any time you feel your situation is an emergency, please call 911 immediately. . Non-Emergent Contact Non-Emergency issues call your: Primary Care Provider, Urologist . . "Provider Documentation" section prepared by Vasyl Sanchez. . VTE Core Measure Inpt VTE Proph given/why not?: SCD's
--- NOTE | 2017-08-06 15:48 | Discharge Summary ---
Discharge Summary Date of Service Aug 06, 2017. Discharge Summary Admission Date: Aug 05, 2017 at 16:37 Discharge Date: Aug 06, 2017 Discharge Disposition: Home Principal Diagnosis: right uretal stone, abdominal pain Consultations: urology: right upper ureteral stone 4mm her pain resolved after ER so she may have moved the stone into the mid ureter she is willing to try to pass stone at home. flomax 0.4mg daily oral narcotics prn severe pain nsaids for mild pain outpatient surgery if colic returns. Medication Reconciliation New Medications: Oxycodone/Acetaminophen 5MG/325MG (Percocet 5MG/325MG) Tab 1 TABLET PO Q6H PRN for Pain for 7 Days, #28 TAB Tamsulosin HCl (Tamsulosin HCl) 0.4 Mg Cap 0.4 MG PO BID for 60 Days, #120 CAP Continued Medications: Albuterol Sulfate (Proair Respiclick) 108 Mcg/Act Aer 2 PUFFS INH Q4H PRN for Wheezing Aspirin (Aspirin Ec) 81 Mg Tab 81 MG PO QAM Cetirizine (Zyrtec) 10 Mg Tab 10 MG PO HS, TAB Ferrous Sulfate (Ferrous Sulfate) 325 Mg Tab 325 MG PO BID Glipizide (Glipizide Er) 10 Mg Tab 10 MG PO BIDM, TAB 1 Refill Ibuprofen (Advil) 200 Mg Tab 600 MG PO UD PRN for Pain or Fever, TAB Liraglutide (Victoza) 18 Mg/3 Ml Inj 1.2 MG SC DAILY Lisinopril (Lisinopril) 5 Mg Tab 5 MG PO DAILY, TAB Metformin Hcl (Glucophage) 500 Mg Tab 1000 MG PO BID, TAB Montelukast Sodium (Singulair) 10 Mg Tab 10 MG PO HS, TAB Ondansetron Hcl (Zofran) 4 Mg Tab 4 MG PO Q6H PRN for Nausea, TAB 1 Refill Pantoprazole (Protonix) 40 Mg Tab 40 MG PO QAM, #30 TAB Valacyclovir Hcl (Valtrex) 500 Mg Tab 500 MG PO TID PRN, TAB Admission Information HPI (per Admitting provider): 41 YO female followed by Dr. Fontenot for Family Medicine. History of hypertension, DM type 2, and other problems noted below. History of renal calculi, but never requiring hospitalization or surgical intervention. Developed abdominal / right flank pain around 11:00 this morning. Pain constant, severe (8/10), located in RLQ, and radiates to right flank. Associated with chills, nausea, vomiting. No fever. No diarrhea, melena, hematochezia. No dysuria or hematuria. Did not take any medications for relief prior to ED arrival. Received morphine, ondansetron, ketorolac in ED with improvement of pain and nausea. . Physical Exam (per Admitting): General Appearance: WD/WN, no apparent distress Head: normocephalic, atraumatic Eyes: normal inspection, PERRL, EOMI, sclerae normal (conjunctivae pink) ENT: hearing grossly normal, pharynx normal Neck: supple, no adenopathy, thyroid normal, no JVD, trachea midline Respiratory/Chest: lungs clear, no respiratory distress, no accessory muscle use Cardiovascular: regular rate, rhythm, no edema, no gallop, no JVD, no murmur Abdomen/GI: normal bowel sounds, non tender (after receiving analgesics in ED), soft, no organomegaly, no pulsatile mass Back: no CVA tenderness (after receiving analgesics in ED) Extremities/Musculoskelatal: normal inspection, no calf tenderness, normal capillary refill, no pedal edema 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 Was evaluated by urology service on emergency presentation on 08/05/2017. CT Abdomen Lung bases are generally clear with subsegmental linear pleural-based opacity of the right middle lobe suggesting scarring/atelectasis. No pneumoperitoneum. Imaged inferior cardiac chambers are unremarkable. There is decreased attenuation of the cardiac blood pool suggesting anemia. Hepatomegaly with hepatosteatosis is noted. Prior cholecystectomy. Spleen, pancreas and adrenal glands are within normal limits. 2 mm nonobstructing calculus of the superior pole left kidney is noted. Additionally, there is a 2 mm nonobstructing calculus of the inferior pole right kidney. There is mild right sided obstructive uropathy secondary to a 4 x 3 x 4 mm calculus of the right ureteropelvic junction. Mild associated surrounding inflammatory stranding. Ureters are otherwise unremarkable. Urinary bladder is collapsed. There is asymmetric prominence of the right uterine body, 3.1 x 2.4 cm which is suspicious for underlying uterine fibroid. There is a tubular fluid- filled structure in the region of the left adnexum measuring up to 9 mm transversely on image 390 of series 3 suggesting hydrosalpinx. The abdominal aorta is normal in course and caliber. No bulky retroperitoneal adenopathy. There is no bowel obstruction or focal bowel wall thickening. The appendix is air-filled, noninflamed and nondilated. Postsurgical changes are seen within the right lower quadrant of the abdomen. Previously noted chronic loculated fluid within the right lower quadrant have resolved. Soft tissues are unremarkable. Bones are intact. There is mild convex left curvature of the lumbar spine. Mild endplate changes of the lower thoracic spine. IMPRESSION: 1. Mild right-sided hydroureteronephrosis secondary to a 4 x 3 x 4 mm calculus of the right ureteropelvic junction. Additional nonobstructing renal calculi are present as above. 2. Normal appendix. 3. Postsurgical changes of the right lower quadrant with resolution of the previously described small loculated fluid collection. 4. Suspected mild left hydrosalpinx. Asymmetry of the right uterine body as above suggests uterine fibroid. This could be correlated with pelvic ultrasound if clinically indicated. 5. Hepatomegaly with hepatosteatosis. Prior cholecystectomy. DISPOSITION: When patient reassessed in the AM of 08/06/2017, patient reports abdominal pain has improved significantly patient re-assessed by urology and no emergent urology procedure needed at this time follow up with primary care doctor: Hamzah Fontenot MD [facility] on August 12 2017 at 9:45 AM if patient continue to have abdominal pain, urinary symptoms, fevers, please seek immediate medical attention such as emergency room or notify Physician's Name: Rosi Seymour MD Specialty: UROLOGY Answering Service: [phone] Total time spent on discharge = This includes examination of the patient, discharge planning, medication reconciliation, and communication with other providers. Discharge Instructions follow up with her primary care doctor: Hamzah Fontenot MD [facility] on August 12 2017 at 9:45 AM if you continue to have abdominal pain, urinary symptoms, fevers, please seek immediate medical attention such as emergency room or notify Physician's Name: Rosi Seymour MD Specialty: UROLOGY Answering Service: [phone]
[2017-08-06 16:35] VITALS: BP 121/76; PULSE 87; TEMP 36.5; O2SAT 97
== END 2017-08-06 17:05 | disposition home or self-care (01) ==
LOC: C.EDB 12:34 → C.MSW 16:37 → ENRESERV 16:50 → CANBEDREQ 18:26
PROVIDERS: ADMIT Hospitalist; ATTEND Hospitalist
DX: N20.2 Calculus of kidney with calculus of ureter (principal); I10 Essential (primary) hypertension; E11.9 Type 2 diabetes mellitus without complications; I70.1 Atherosclerosis of renal artery; E28.2 Polycystic ovarian syndrome; F32.9 Major depressive disorder, single episode, unspecified; F10.11 Alcohol abuse, in remission; K21.9 Gastro-esophageal reflux disease without esophagitis; F43.10 Post-traumatic stress disorder, unspecified; L68.0 Hirsutism; G47.30 Sleep apnea, unspecified; Z79.84 Long term (current) use of oral hypoglycemic drugs; Z79.899 Other long term (current) drug therapy; Z79.82 Long term (current) use of aspirin